=== PATIENT | female | born 2000 | race Caucasian/White ===

== ENCOUNTER 2020-08-03 09:21 | Emergency (ER) | payer OTHER, SELFPAY ==
[2020-08-03 09:41] VITALS: BP 114/78; PULSE 78; RESP 16; TEMP 37.2; O2SAT 99
[2020-08-03] MEDS: TETANUS,DIPHTHERIA,AC PERTUSSIS ADULT (0.5 ML) BOOSTRIX IM (09:48)
[2020-08-03 10:00] VITALS: BP 114/78; PULSE 78; RESP 16; TEMP 37.2; O2SAT 99
--- NOTE | 2020-08-03 10:04 | ED.WOUNDLAC ---
HPI - Wound/Laceration General Chief Complaint: Wound/Laceration Stated Complaint: Laceration to leg Time Seen by Provider: 08/03/20 09:45 Source: patient and RN notes reviewed Mode of arrival: ambulatory Limitations: no limitations History of Present Illness HPI narrative: Patient presents today complaining of a laceration to her right lateral thigh that was sustained when she was trying to open up a cat food can with a pocket knife 1 hour prior to arrival. Pressure dressed at home, but it would not stop bleeding so she sought treatment today at urgent care. Currently rates her pain 5/10. She is not up-to-date on her tetanus vaccine. 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 Related Data Home Medications Medication Instructions Recorded Confirmed fluoxetine [Prozac] 40 mg PO QAM 08/03/20 08/03/20 omeprazole 20 mg PO DAILY 08/03/20 08/03/20 Allergies Allergy/AdvReac Type Severity Reaction Status Date / Time No Known Allergies Allergy Verified 08/03/20 09:48 Review of Systems Review of Systems: Narrative: CONSTITUTIONAL: Denies body aches, fever, chills, or sweats. EYES: Denies visual changes, redness, or discharge. ENT: Denies rhinorrhea, congestion, sore throat, or otalgia. CARDIOVASCULAR: Denies chest pain, palpitations, or edema. RESPIRATORY: Denies cough or dyspnea. GASTROINTESTINAL: Denies abdominal pain, nausea, vomiting, or diarrhea. GENITOURINARY: Denies dysuria or hematuria. SKIN: Denies rash, itching. + Laceration to right lateral thigh MUSCULOSKELETAL: Denies back pain, joint pain, or myalgia. NEUROLOGIC: Denies headache, numbness, tingling, or weakness. PSYCH: Denies depression or anxiety. PMFSH Comments At time of signature, I have reviewed and agree with nursing past medical, surgical, social and family history unless otherwise noted. Please see nursing chart for further information. There is no relevant family history pertinent to the presenting complaint Exam Narrative: Exam Narrative: GENERAL: Well-appearing, well-nourished, and in no acute distress. HEAD: Normocephalic, atraumatic. EYES: EOMI. No redness or drainage. Conjunctivae normal. ENT: Mucous membranes pink and moist. NECK: Normal AROM. CHEST: No respiratory distress. EXTREMITIES: Normal range of motion. No edema. SKIN: Warm, dry, no rash. Capillary refill normal. Normal skin turgor. 1 cm full-thickness linear laceration to the right lateral thigh. Moderate active bleeding. Distal sensation intact. Capillary refill normal. Pedal pulse normal. Full range of motion of the knee and thigh. NEURO: No focal deficits. Alert and oriented x3. Gait steady. PSYCH: Normal affect. No signs of depression or anxiety. Course Vital Signs Vital signs: Vital Signs Temperature 98.9 F 08/03/20 09:41 Pulse Rate 78 08/03/20 09:41 Respiratory Rate 16 08/03/20 09:41 Blood Pressure 114/78 08/03/20 09:41 Pulse Oximetry 99 08/03/20 09:41 Temperature 98.9 F 08/03/20 10:00 Pulse Rate 78 08/03/20 10:00 Respiratory Rate 16 08/03/20 10:00 Blood Pressure 114/78 08/03/20 10:00 Pulse Oximetry 99 08/03/20 10:00 Reviewed Procedures Laceration Laceration 1: Date: 08/03/20 Time: 09:55 Site: lower extremity Side (If applicable): right Size (cm): 1 Description: linear Depth: simple, single layer Local Anesthetic: lidocaine 1% Amount of anesthesia used (mL): 2 Pre-repair: wound explored and irrigated ====== Skin Level ====== Skin layer closed with: nylon Size (cm): 5-0 Number of sutures: 2 Technique: simple, interrupted ====== Subcutaneous Layer ====== ====== Muscle Layer ====== ====== Tendon Layer ====== MDM - Wound/Laceration Differential Diagnosis Differential diagnosis: Likely laceration and avulsion of skin Critical Care Time Critical Care Time Critical Care Time: No Discharg
== END 2020-08-03 10:09 | disposition home or self-care (01) ==
PROVIDERS: Emergency Provider Nurse Practitioner
DX: S71.111A Laceration without foreign body, right thigh, initial encounter (principal); W26.0XXA Contact with knife, initial encounter; Z23 Encounter for immunization
CPT/HCPCS: 12001; 90471; 90715; 99202; G0463